=== PATIENT | female | born 1990 ===

== ENCOUNTER 2020-10-21 12:40 | Outpatient (CLI) ==
[~2020-10-21] VITALS: Ht 165.1 cm; Wt 92.6 kg
[2020-10-21 13:03] VITALS: BP 118/81
--- NOTE | 2020-10-21 14:24 | IPNPDOC ---
Text Note Date of Service The patient was seen on 10/21/20. NOTE HPI: 30yo at 37wks presents as unregistered patient with complaints of contractions, headache. She has been seeking care in [facility] and has been trying to find a local clinical social work aide. Her history is significant for 2 prior sections. She has used Tylenol with some relief for headache that has been present for several days. She reports active movements no vaginal bleeding or leakage of fluid Past medical history: None Past surgical history: 2 section Medications: vitamins and Tylenol as needed No known drug allergies O: Vital signs stable she is afebrile Category 1 heart tracing, irregular contractions General: Well-appearing no acute distress Abdomen: Gravid nontender Cervix long and closed Assessment/plan: 30-year-old 3 para 2 at 37 weeks with irregular contractions not in active labor Headachepatient desires outpatient medication. Prescription for Fioricet provided Limited carehave arranged appointment this coming Tuesday on plan for repeat at 39 weeks. Elaine Sapp MD VS,Yolie, I+O VSYolie I+O Vital Signs Date Time Temp Pulse Resp B/P (MAP) Pulse Ox O2 Delivery O2 Flow Rate FiO2 10/21/20 13:03 96.6 93 18 118/81 (93) ELAINE SAPP MD. Oct 21, 2020 14:23
[2020-10-21] MEDS ORDERED: FIOR1CAP PO (14:31)
== END 2020-10-21 14:37 | disposition home or self-care (01) ==
LOC: M LDO 12:40
PROVIDERS: ATTEND Obstetrics & Gynecology
DX: O99.353 Diseases of the nervous system complicating pregnancy, third trimester (principal); R51.9 Headache, unspecified; O34.219 Maternal care for unspecified type scar from previous cesarean delivery; O60.00 Preterm labor without delivery, unspecified trimester; Z3A.37 37 weeks gestation of pregnancy
CPT/HCPCS: 59025; G0378; G0463